=== PATIENT | male | born 1970 | race Native Hawaiian/Other Pacific Islander ===

== ENCOUNTER 2019-03-28 13:51 | Outpatient (CLI) | payer OTHER ==
[2019-03-28 14:26] LABS: PLATELET COUNT 465 K/uL (142-355)
[2019-03-28 14:34] LABS: POTASSIUM 4.8 mmol/L (3.6-5.2)
== END 2019-03-28 19:34 | disposition home or self-care (01) ==
LOC: LABW 13:51
PROVIDERS: Internal Medicine Gastroenterology
DX: R10.13 Epigastric pain (principal)
CPT/HCPCS: 36415; 80053; 82150; 83690; 85027

== ENCOUNTER 2019-03-30 08:27 | Outpatient (CLI) | payer OTHER | END 2019-03-30 20:18 | disposition home or self-care (01) | LOC: US 08:27 | DX: R10.13 Epigastric pain (principal); R11.2 Nausea with vomiting, unspecified ==

== ENCOUNTER 2019-10-23 16:52 | Emergency (ER) | payer OTHER ==
[~2019-10-23] VITALS: Ht 182.9 cm; Wt 119.3 kg
[2019-10-23 16:53] VITALS: BP 198/116; TEMP 98.5
== END 2019-10-23 18:26 | disposition home or self-care (01) ==
LOC: ED 16:52
DX: G51.0 Bell's palsy (principal)
CPT/HCPCS: 99282

== ENCOUNTER 2021-09-20 08:00 | Emergency (ER) | payer OTHER ==
[~2021-09-20] VITALS: Ht 185.4 cm; Wt 116.1 kg
[2021-09-20 08:04] VITALS: TEMP 96.8
[2021-09-20 09:46] VITALS: BP 138/78
== END 2021-09-20 09:46 | disposition home or self-care (01) ==
LOC: ED 08:00
DX: S63.592A Other specified sprain of left wrist, initial encounter (principal); W01.0XXA Fall on same level from slipping, tripping and stumbling without subsequent striking against object, initial encounter; Y92.89 Other specified places as the place of occurrence of the external cause
CPT/HCPCS: 99283